=== PATIENT | female | born 2000 | race American Indian/Alaskan Native ===

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

== ENCOUNTER 2021-07-10 15:23 | Emergency (ER) | payer OTHER ==
[2021-07-10 15:32] VITALS: BP 126/54
[2021-07-10] MEDS ORDERED: ACETAMINOPHEN 500 MG TAB PO ONE (16:05)
--- NOTE | 2021-07-10 18:22 | Emergency Department Report ---
ED Female HPI - General Chief complaint: Abdominal Pain Stated complaint: ABD PAIN Source: patient Mode of arrival: Ambulatory Limitations: No Limitations - History of Present Illness Initial comments: Patient is a A0 21-year-old -[place] female with no past medical history presents to the ED with complaint of acute onset persistent suprapubic cramps intermittently for the last 2 days. Patient states that her LMP was May 21, 2021 and that she tested negative for at home. Patient states that she wants to be and that she has been taking some [id number] vitamins and other supplements to increase and enhance her conception. Patient however states that her menstrual cycle is irregular and that she does not use any contraceptives. Patient denies vaginal bleeding, dysuria, vaginal discharge, dyspareunia, low back pain, chest pain, shortness of breath, nausea and vomiting, diarrhea, fever and chills. MD Complaint: pelvic pain, other -: Sudden (Baseline urgency), days(s) (2) Location: suprapubic Radiation: non-radiating Severity: moderate Severity scale (0 -10): 5 Quality: cramping, aching Consistency: constant Improves with: none Worsens with: none Are you Now?: No (Unsure) Last Menstrual Period: 05/21/21 EDC: 02/25/22 Associated Symptoms: denies other symptoms, abdominal pain (Suprapubic pain and pressure). denies: vaginal discharge, vaginal bleeding, nausea/vomiting, fever/chills, headaches, loss of appetite, dysuria, hematuria, rash, seizure, shortness of breath, syncope, weakness - Related Data Sexually active: Yes : 1 Para: 1 A: 0 Previous Rx's Medication Instructions Recorded Last Taken Type Vit No.130/Iron/Folic 1 each PO QDAY #90 tablet 07/31/17 Unknown Rx [ Tablet] Acetaminophen [Tylenol] 650 mg PO QID PRN #60 capsule 11/09/17 Unknown Rx Mag Hydrox/Aluminum Hyd/Simeth 30 ml PO TID PRN #1 11/09/17 Unknown Rx [Maalox Advanced Suspension] Acetaminophen/Codeine [Tylenol 1 tab PO Q6H PRN #12 tab 11/21/18 Unknown Rx /Codeine # 3 tab] Ciprofloxacin HCl [Ciprofloxacin 500 mg PO Q12HR #20 tab 11/21/18 Unknown Rx TAB] Ondansetron [Zofran Odt] 4 mg PO Q8HR PRN #12 tab.rapdis 11/21/18 Unknown Rx metroNIDAZOLE [Flagyl] 500 mg PO Q12HR #20 tab 11/21/18 Unknown Rx levETIRAcetam [Keppra TAB] 500 mg PO BID #60 tablet 12/14/19 Unknown Rx Allergies Allergy/AdvReac Type Severity Reaction Status Date / Time Penicillins Allergy Swelling Verified 01/13/19 16:10 ED Review of Systems ROS: Stated complaint: ABD PAIN Other details as noted in HPI Constitutional: denies: chills, fever Eyes: denies: eye pain, eye discharge, vision change ENT: denies: ear pain, throat pain Respiratory: denies: cough, shortness of breath, wheezing Cardiovascular: denies: chest pain, palpitations Endocrine: no symptoms reported Gastrointestinal: abdominal pain (Suprapubic pain and cramps). denies: nausea, vomiting, diarrhea Genitourinary: urgency, frequency. denies: dysuria, hematuria, discharge, abnormal menses, dyspareunia Musculoskeletal: denies: back pain, joint swelling, arthralgia Skin: denies: rash, lesions Neurological: denies: headache, weakness, paresthesias Psychiatric: denies: anxiety, depression Hematological/Lymphatic: denies: easy bleeding, easy bruising ED Past Medical Hx - Past Medical History Hx Hypertension: Yes - Surgical History Additional Surgical History: - Social History Smoking Status: Former Smoker (None x1 month) Substance Use Type: None (Denies illicit drug use) - Medications Home Medications: Home Medications Medication Instructions Recorded Confirmed Last Taken Type Vit No.130/Iron/Folic 1 each PO QDAY #90 tablet 07/31/17 Unknown Rx [ Tablet] Acetaminophen [Tylenol] 650 mg PO QID PRN #60 capsule 11/09/17 Unknown Rx Mag Hydrox/Aluminum Hyd/Simeth 30 ml PO TID PRN #1 11/09/17 Unknown Rx [Maalox Advanced Suspension] Acetaminophen/Codeine [Tylenol 1 tab PO Q6H PRN #12 tab 11/21/18 Unknown Rx /Codeine # 3 tab] Ciprofloxacin HCl [Ciprofloxacin 500 mg PO Q12HR #20 tab 11/21/18 Unknown Rx TAB] Ondansetron [Zofran Odt] 4 mg PO Q8HR PRN #12 tab.rapdis 11/21/18 Unknown Rx metroNIDAZOLE [Flagyl] 500 mg PO Q12HR #20 tab 11/21/18 Unknown Rx levETIRAcetam [Keppra TAB] 500 mg PO BID #60 tablet 12/14/19 Unknown Rx ED Physical Exam - General Limitations: No Limitations General appearance: alert, in no apparent distress - Head Head exam: Present: atraumatic, normocephalic, normal inspection - Eye Eye exam: Present: normal appearance, PERRL, EOMI Pupils: Present: normal accommodation - ENT ENT exam: Present: normal exam, normal orophraynx, mucous membranes moist, TM's normal bilaterally, normal external ear exam - Neck Neck exam: Present: normal inspection, full ROM. Absent: tenderness - Respiratory Respiratory exam: Present: normal lung sounds bilaterally. Absent: respiratory distress, wheezes, rales, rhonchi, stridor, chest wall tenderness, accessory muscle use, decreased breath sounds, prolonged expiratory - Cardiovascular Cardiovascular Exam: Present: regular rate, normal rhythm, normal heart sounds. Absent: systolic murmur, diastolic murmur, rubs, gallop - GI/Abdominal GI/Abdominal exam: Present: soft, normal bowel sounds. Absent: tenderness, guarding, rebound, hyperactive bowel sounds, hypoactive bowel sounds, organomegaly, mass - Extremities Exam Extremities exam: Present: normal inspection, full ROM, normal capillary refill. Absent: tenderness - Back Exam Back exam: Present: normal inspection, full ROM. Absent: tenderness, CVA tenderness (R), CVA tenderness (L), muscle spasm, paraspinal tenderness, vertebral tenderness - Neurological Exam Neurological exam: Present: alert, oriented X3, CN II-XII intact, normal gait, reflexes normal - Psychiatric Psychiatric exam: Present: normal affect, normal mood - Skin Skin exam: Present: warm, dry, intact, normal color. Absent: rash ED Course Vital Signs 07/10/21 15:28 Temperature 98.8 F Pulse Rate 76 Respiratory 18 Rate Blood Pressure 126/54 O2 Sat by Pulse 100 Oximetry ED Medical Decision Making - Medical Decision Making This is a A0 21-year-old -[place] female with past medical history of hypertension who presents to the ED with complaint of acute onset persistent suprapubic cramps intermittently for the last 2 days. Patient states that her LMP was May 21, 2021 and that she tested negative for at home. Patient states that she wants to be and that she has been taking some iruo-[id number]-[id number] vitamins and other supplements to increase and enhance her conception. Patient however states that her menstrual cycle is irregular and that she does not use any contraceptives. In the ED, patient is alert and oriented x3 and is not in any distress. Urinalysis was ordered, and patient was treated for pain with Tylenol. Patient however did not give urine and eloped from the ED after taking medications for pain. - Differential Diagnosis ; dysmenorrhea; UTI; ovarian cyst; muscle spasm Critical care attestation.: If time is entered above; I have spent that time in minutes in the direct care of this critically ill patient, excluding procedure time. ED Disposition Clinical Impression: Dysmenorrhea, unspecified Disposition: 07 LEFT AWOL/ELOPED Is pt being admited?: No Does the pt Need Aspirin: No Condition: Stable Instructions: Abdominal Pain (ED) Referrals: PRIMARY CARE [Primary Care Provider] - 3-5 Days Time of Disposition: 18:22 Print Language: MAORI
== END 2021-07-10 17:20 | disposition left against medical advice (07) ==
LOC: ED 15:23
DX: N94.6 Dysmenorrhea, unspecified (principal); Z87.891 Personal history of nicotine dependence; I10 Essential (primary) hypertension; Z88.0 Allergy status to penicillin
CPT/HCPCS: 99281